=== PATIENT | male | born 1975 | race African-American/Black ===

== ENCOUNTER 2017-04-26 18:22 | Observation (INO) | payer OTHER ==
[~2017-04-26] VITALS: Ht 188 cm; Wt 166.2 kg
[~2017-04-26 18:22] MED LIST: CHOLESTEROL MED PO; LISI-360 PO; METO25 PO
[2017-04-26 18:23] VITALS: BP 220/131; PULSE 69; RESP 14; TEMP 98.3; O2SAT 98
[2017-04-26 20:06] VITALS: BP 189/121; PULSE 74; RESP 20; O2SAT 97
--- NOTE | 2017-04-26 20:17 | PD ---
HPI Chief Complaint: Cardiac Complaint Time Seen by Provider: 20:17 Travel History International Travel<30 days: No Contact w/Intl Traveler<30days: No Traveled to known affect area: No History of Present Illness HPI 41-year-old male with PMH of untreated hypertension presents to the ED for evaluation of headache, dizziness, blurred vision. Onset while the patient was cutting a tree limb. Headache described as bitemporal and over the hall of the head. He endorses accompanying palpitations, nausea and shortness of breath. He went home and laid down but his headache had not resolved so he decided to come to the emergency room. On presentation he complains of 7/10 left-sided chest pain and left head pain. Chest pain described as "a pressure. " He states that he was prescribed lisinopril but he had side effects and stopped taking it "months ago." He endorses a history of headaches and states this is similar to those. PFSH Past Medical History Asthma: Yes Cardiovascular Problems: Yes High Cholesterol: Yes Cerebrovascular Accident: Yes Genitourinary: No Headaches: Yes Hypertension: Yes Musculoskeletal: No Neurologic: Yes Reproductive: No Respiratory: Yes Migraines: Yes Myocardial Infarction: No Sleep Apnea: Yes Past Surgical History Abdominal Surgery: No Cardiac Surgery: No Ear Surgery: No Endocrine Surgery: No Eye Surgery: No Gynecologic Surgery: No Oral Surgery: No Thoracic Surgery: No Social History Alcohol Use: No Tobacco Use: No Substance Use: No Allergies-Medications (Allergen,Severity, Reaction): Coded Allergies: Lisinopril (Verified Allergy, Severe, Swelling, 04/26/17) Reported Meds & Prescriptions Reported Meds & Active Scripts Active No Active Prescriptions or Reported Medications Review of Systems Except as stated in HPI: all other systems reviewed are Neg Physical Exam Narrative GENERAL: Well-nourished, well-developed patient. SKIN: Focused skin assessment warm/dry. HEAD: Normocephalic. EYES: No scleral icterus. No injection or drainage. NECK: Supple, trachea midline. No JVD or lymphadenopathy. CARDIOVASCULAR: Regular rate and rhythm without murmurs, gallops, or rubs. RESPIRATORY: Breath sounds equal bilaterally. No accessory muscle use. GASTROINTESTINAL: Abdomen soft, non-tender, nondistended. MUSCULOSKELETAL: No cyanosis, or edema. NEUROLOGICAL: Awake and alert. Cranial nerves II through XII intact. Motor and sensory grossly within normal limits. Five out of 5 muscle strength in all muscle groups. Normal speech. BACK: Nontender without obvious deformity. No CVA tenderness. Data Data Last Documented VS Vital Signs Date Time Temp Pulse Resp B/P Pulse Ox O2 Delivery O2 Flow Rate FiO2 04/26/17 22:20 64 20 196/114 100 Room Air 04/26/17 18:23 98.3 Orders Electrocardiogram (04/26/17 20:29) Prothrombin Time / Inr (Pt) (04/26/17 20:29) Act Partial Throm Time (Ptt) (04/26/17 20:29) Complete Blood Count With Diff (04/26/17 20:29) Comprehensive Metabolic Panel (04/26/17 20:29) Creatine Kinase (Cpk) (04/26/17 20:29) Troponin I (04/26/17 20:29) Urinalysis - C+S If Indicated (04/26/17 20:29) Chest, Single Ap (04/26/17 20:29) Ecg Monitoring (04/26/17 20:29) Iv Access Insert/Monitor (04/26/17 20:29) Oximetry (04/26/17 20:29) Sodium Chloride 0.9% Flush (Ns Flush) (04/26/17 20:30) Prochlorperazine Inj (Compazine Inj) (04/26/17 20:45) Diphenhydramine Inj (Benadryl Inj) (04/26/17 20:45) Aspirin (Aspirin) (04/26/17 22:00) Nitroglycerin 2% Oint (Nitroglycerin 2% (04/26/17 22:00) Metoprolol Tartrate Inj (Lopressor Inj) (04/26/17 22:00) Clonidine (Catapres) (04/26/17 22:30) Vital Signs (Adult) Q4H (04/26/17:17) Activity Oob With Assistance (04/26/17:17) Automotive Services Manager / Telemetry .CONTINUOUS (04/26/17:17) Diet Heart Healthy (04/27/17 Breakfast) Sodium Chloride 0.9% Flush (Ns Flush) (04/26/17 22:30) Sodium Chloride 0.9% Flush (Ns Flush) (04/27/17 09:00) Basic Metabolic Panel (Bmp) (04/27/17 06:00) Complete Blood Count With Diff (04/27/17 06:00) Case Management Consult (04/26/17 22:17) Naloxone Inj (Narcan Inj) (04/26/17 22:30) Ct Brain W/O Iv Contrast(Rout) (04/26/17 ) Hydralazine Inj (Apresoline Inj) (04/26/17 22:30) Consult Cardiology (04/26/17 ) Admit Order (Ed Use Only) (04/26/17 22:17) Labs Laboratory Tests Test 04/26/17 20:44 White Blood Count 5.3 TH/MM3 Red Blood Count 4.97 MIL/MM3 Hemoglobin 12.5 GM/DL Hematocrit 38.9 % Mean Corpuscular Volume 78.3 FL Mean Corpuscular Hemoglobin 25.1 PG Mean Corpuscular Hemoglobin 32.0 % Concent Red Cell Distribution Width 15.9 % Platelet Count 165 TH/MM3 Mean Platelet Volume 9.7 FL Neutrophils (%) (Auto) 71.7 % Lymphocytes (%) (Auto) 21.9 % Monocytes (%) (Auto) 5.3 % Eosinophils (%) (Auto) 0.9 % Basophils (%) (Auto) 0.2 % Neutrophils # (Auto) 3.8 TH/MM3 Lymphocytes # (Auto) 1.2 TH/MM3 Monocytes # (Auto) 0.3 TH/MM3 Eosinophils # (Auto) 0.0 TH/MM3 Basophils # (Auto) 0.0 TH/MM3 CBC Comment DIFF FINAL Differential Comment Prothrombin Time 10.8 SEC Prothromb Time International 1.0 RATIO Ratio Activated Partial 26.5 SEC Thromboplast Time Sodium Level 139 MEQ/L Potassium Level 3.8 MEQ/L Chloride Level 104 MEQ/L Carbon Dioxide Level 25.5 MEQ/L Anion Gap 10 MEQ/L Blood Urea Nitrogen 9 MG/DL Creatinine 1.03 MG/DL Estimat Glomerular Filtration 96 ML/MIN Rate Random Glucose 96 MG/DL Calcium Level 9.0 MG/DL Total Bilirubin 0.6 MG/DL Aspartate Amino Transf 19 U/L (AST/SGOT) Alanine Aminotransferase 27 U/L (ALT/SGPT) Alkaline Phosphatase 74 U/L Total Creatine Kinase 299 U/L Troponin I 0.16 NG/ML Total Protein 7.3 GM/DL Albumin 3.4 GM/DL MDM Medical Decision Making Medical Screen Exam Complete: Yes Emergency Medical Condition: Yes Differential Diagnosis Hypertensive urgency versus hypertensive emergency versus heat exhaustion versus angina versus ACS versus Narrative Course 41-year-old male with PMH of untreated hypertension presents to the ED for evaluation of , left-sided chest pain, headache, dizziness, blurred vision. Onset while the patient was cutting a tree limb. Chest pain described as "a pressure." Headache described as bitemporal and over the hall of the head. He endorses accompanying palpitations, nausea and shortness of breath. He went home and laid down but his headache had not resolved so he decided to come to the emergency room. On presentation he complains of 7/10 left-sided chest pain and left head pain. He states that he was prescribed lisinopril but he had side effects and stopped taking it "months ago." He endorses a history of headaches and states this is similar to those. Patient was administered Compazine and Benadryl. No concerning abnormalities of the CBC, CMP, coags. Troponin elevated 0.16. Chest x-ray clear per radiology read. EKG rate 67, sinus rhythm with first-degree AV block. HI interval to 18, QRS 100, QTC 427. Flattened T waves. Reviewed by Dr. Pena. EKG similar to previous of 09/22/15. Patient was administered ASA, Metoprolol, nitro paste. Call placed to Dr. Mcallister, cardiology, who recommends admission to the medicine service for further evaluation. I discussed the patient, results, plan with Dr. Pena. I discussed the results the workup with the family who are agreeable to admission. I spoke with Dr. Judge who agrees to accept the patient on medicine service. Please see medicine notes for disposition. Diagnosis Primary Impression: Chest pain Qualified Code: R07.9 - Chest pain, unspecified type Additional Impressions: Elevated troponin Hypertension Qualified Code: I10 - Hypertension, unspecified type Admitting Information Admitting Physician Requests: Admit Scripts No Active Prescriptions or Reported Meds Lauryn Perez Apr 26, 2017 20:17
[2017-04-26] MEDS ORDERED: SODIUM CHLORIDE 0.9% FLUSH 10 ML FLUSH IVF PRN (20:30)
[2017-04-26 20:38] VITALS: O2SAT 98
[2017-04-26] MEDS ORDERED: diphenhydrAMINE HCL 50 MG/ML VIAL IVP ONE (20:45)
[2017-04-26] MEDS ORDERED: PROCHLORPERAZINE INJ 10 MG/2 ML VIAL IVP ONE (20:45)
[2017-04-26 21:12] LABS: AUTOMATED NEUTROPHIL # 3.8 TH/MM3 (1.8-7.7); BASOPHIL % 0.2 % (0.0-2.0); EOSINOPHIL % 0.9 % (0.0-4.0); HEMATOCRIT 38.9 % (39.0-51.0); HEMO FLAGS DIFF FINAL; LYMPH % 21.9 % (9.0-44.0); LYMPHOCYTE # 1.2 TH/MM3 (1.0-4.8); MEAN CELL VOLUME 78.3 FL (80.0-100.0); MEAN CORPUSCULAR HEMOGLOBIN 25.1 PG (27.0-34.0); MONO % 5.3 % (0.0-8.0); NEUT % 71.7 % (16.0-70.0); PLATELET COUNT 165 TH/MM3 (150-450); RED BLOOD COUNT 4.97 MIL/MM3 (4.50-5.90); RED CELL DISTRIBUTION WIDTH 15.9 % (11.6-17.2); WHITE BLOOD COUNT 5.3 TH/MM3 (4.0-11.0)
--- NOTE | 2017-04-26 21:14 | RADRPT ---
EXAM DATE/TIME: 04/26/2017 20:32 [facility] COMPARISON: No previous studies available for comparison. INDICATIONS : Patient has had chest pain since this morning. MEDICAL HISTORY : Hypertension. Cerebrovascular accident. SURGICAL HISTORY : None. ENCOUNTER: Initial ACUITY: 1 day PAIN SCORE: 5/10 LOCATION: Bilateral chest FINDINGS: A single view of the chest demonstrates the lungs to be symmetrically aerated without evidence of mas s, infiltrate or effusion. The cardiomediastinal contours are unremarkable. Osseous structures are intact. CONCLUSION: The lungs are clear. Jaxon Lao MD on April 26, 2017 at 21:12 Board Certified Radiologist. This report was verified electronically.
[2017-04-26 21:19] LABS: APTT (PATIENT) 26.5 SEC (24.3-30.1); PROTHROMBIN TIME - PATIENT 10.8 SEC (9.8-11.6)
[2017-04-26 21:21] LABS: ANION GAP 10 MEQ/L (5-15); AST (GOT) 19 U/L (15-37); BICARBONATE 25.5 MEQ/L (21.0-32.0); BLOOD UREA NITROGEN 9 MG/DL (7-18); CHLORIDE 104 MEQ/L (98-107); GLOMERULAR FILTRATION RATE 96 ML/MIN (>89); POTASSIUM 3.8 MEQ/L (3.5-5.1); SODIUM (NA) 139 MEQ/L (136-145)
[2017-04-26 21:22] LABS: ALT (GPT) 27 U/L (12-78)
[2017-04-26 21:26] LABS: ALKALINE PHOSPHATASE 74 U/L (45-117); CREATINE KINASE 299 U/L (39-308); TOTAL BILIRUBIN ADULT 0.6 MG/DL (0.2-1.0)
[2017-04-26] MEDS ORDERED: ASPIRIN 81 MG CHEW TAB PO ONE (21:45)
[2017-04-26] MEDS ORDERED: ASPIRIN 325 MG TAB PO ONE (22:00)
[2017-04-26] MEDS ORDERED: NITROGLYCERIN 2% OINT 1 GM PACKET TOP ONE (22:00)
[2017-04-26] MEDS: METOPROLOL TARTRATE 5 MG/5 ML VIAL IVS SCH ×3 (22:05→22:12)
[2017-04-26 22:20] VITALS: BP 196/114; PULSE 64; RESP 20; O2SAT 100
[2017-04-26] MEDS ORDERED: hydrALAZINE HCL 20 MG/ML VIAL IV PUSH PRN (22:30)
[2017-04-26] MEDS ORDERED: NALOXONE HCL 0.4 MG/ML AMP IV PRN (22:30)
[2017-04-26] MEDS ORDERED: cloNIDine HCL 0.1 MG TAB PO ONE (22:30)
[2017-04-26] MEDS ORDERED: SODIUM CHLORIDE 0.9% FLUSH 10 ML FLUSH IV FLUSH PRN (22:30)
--- NOTE | 2017-04-26 22:44 | RADRPT ---
EXAM DATE/TIME: 04/26/2017 22:26 [facility] COMPARISON: CT BRAIN W/O CONTRAST, September 22, 2015, 18:41. INDICATIONS : Cephalgia. RADIATION DOSE: 56.35 CTDIvol (mGy) MEDICAL HISTORY : Hypertension. Stroke SURGICAL HISTORY : None. ENCOUNTER: Initial ACUITY: 1 day PAIN SCALE: 3/10 LOCATION: cranial TECHNIQUE: Multiple contiguous axial images were obtained of the head. Using automated exposure control and adj ustment of the mA and/or kV according to patient size, radiation dose was kept as low as reasonably a chievable to obtain optimal diagnostic quality images. DICOM format image data is available electro nically for review and comparison. FINDINGS: CEREBRUM: The ventricles are normal for age. No evidence of midline shift, mass lesion, hemorrhage or acute in farction. No extra-axial fluid collections are seen. POSTERIOR FOSSA: The cerebellum and brainstem are intact. The 4th ventricle is midline. The cerebellopontine angle i s unremarkable. EXTRACRANIAL: The visualized portion of the orbits is intact. SKULL: The calvaria is intact. No evidence of skull fracture. CONCLUSION: Negative noncontrast CT brain. Jaxon Lao MD on April 26, 2017 at 22:42 Board Certified Radiologist. This report was verified electronically.
[2017-04-26 23:02] VITALS: BP 175/88; PULSE 62; RESP 18; O2SAT 94
[2017-04-27] VITALS (8 sets, daily range): BP systolic 120–181; BP diastolic 58–98; PULSE 57–78; RESP 16–20; TEMP 98.4–98.7; O2SAT 95–100
[2017-04-27 01:16] LABS: BLOOD, URINE NEG (NEG); COMMENT (UR) CATH-CULT NOT IND; CULTURE IF INDICATED CATH CULTURE NOT IND; GLUCOSE,URINE NEG (NEG); KETONE, URINE NEG (NEG); MUCUS URINE FEW /lpf (OCC); NITRITE,URINE NEG (NEG); PH, URINE 6.5 (5.0-8.5); SQUAMOUS EPITHELIAL CELL URINE 1 /hpf (0-5); URINE COLOR YELLOW (YELLW/STRAW)
[2017-04-27 07:32] LABS: BASOPHIL % 0.1 % (0.0-2.0); EOSINOPHIL # 0.1 TH/MM3 (0-0.4); EOSINOPHIL % 1.7 % (0.0-4.0); HEMO FLAGS DIFF FINAL; LYMPHOCYTE # 0.9 TH/MM3 (1.0-4.8); MEAN CELL VOLUME 79.3 FL (80.0-100.0); MEAN CORPUSCULAR HEMOGLOBIN 24.5 PG (27.0-34.0); MEAN CORPUSCULAR HGB CONC 30.9 % (32.0-36.0); MONO % 5.6 % (0.0-8.0); NEUT % 70.6 % (16.0-70.0); PLATELET COUNT 142 TH/MM3 (150-450); RED BLOOD COUNT 4.66 MIL/MM3 (4.50-5.90); WHITE BLOOD COUNT 4.3 TH/MM3 (4.0-11.0)
[2017-04-27 08:06] LABS: POTASSIUM 3.6 MEQ/L (3.5-5.1)
[2017-04-27 08:07] LABS: BICARBONATE 26.6 MEQ/L (21.0-32.0)
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
[2017-04-27] MEDS ORDERED: PROMETHAZINE INJ 25 MG/ML VIAL IM ONE (10:15)
[2017-04-27] MEDS: SODIUM CHLORIDE 0.9% FLUSH 10 ML FLUSH IV FLUSH SCH ×2 (10:37→21:52)
[2017-04-27] MEDS ORDERED: REGADENOSON INJ 0.4 MG/5 ML SYR ONE (14:22)
--- NOTE | 2017-04-27 14:59 | EKG ---
Date Performed: 04/26/2017 Time Performed: 20:26:47 PTAGE: 41 years EKG: Sinus rhythm WITH FIRST DEGREE AV BLOCK VOLTAGE CRITERIA FOR LVH NONSPECIFIC T-WAVE ABNORMALITY ABNORMAL ECG PREVIOUS TRACING : 09/22/2015 18.11 Since previous tracing, no significant change noted DOCTOR: Rosa Monge Interpretating Date/Time 04/27/2017 14:59:32
[2017-04-27] MEDS: amLODIPine BESYLATE 5 MG TAB PO SCH (18:18)
[2017-04-27 19:55] LABS: HDL CHOLESTEROL 38.4 MG/DL (40.0-60.0)
[2017-04-28] VITALS: BP 146/88; PULSE 74; RESP 18; TEMP 97.8; O2SAT 97
[2017-04-28 04:00] VITALS: BP 139/90; PULSE 60; RESP 18; TEMP 98.2; O2SAT 96
[2017-04-28 08:00] VITALS: BP 143/96; PULSE 68; RESP 20; TEMP 98.7; O2SAT 96
[2017-04-28 08:05] VITALS: PULSE 61
[2017-04-28] MEDS: amLODIPine BESYLATE 5 MG TAB PO SCH (08:49)
[2017-04-28] MEDS ORDERED: ASPIRIN EC 81 MG TABEC PO SCH (09:00)
[2017-04-28] MEDS ORDERED: HYDROCHLOROTHIAZIDE 25 MG TAB PO SCH (09:00)
[2017-04-28] MEDS: SODIUM CHLORIDE 0.9% FLUSH 10 ML FLUSH IV FLUSH SCH (09:00)
--- NOTE | 2017-04-28 10:08 | RADRPT ---
EXAM DATE/TIME: 04/27/2017 14:28 [place] COMPARISON: No previous studies available for comparison. INDICATIONS : Substernal chest pain. Angina. DOSE: 32.6 mCi Tc99m Myoview at stress. 32.9 mCi Tc99m Myoview at rest. 0.4 mg Lexiscan STRESS SYMPTOMS: Headache and stomach cramps. EJECTION FRACTION: 56% MEDICAL HISTORY : Hypertension. Asthma. Stroke. SURGICAL HISTORY : Orthopedic. ENCOUNTER: Initial ACUITY: 1 day PAIN SCALE: 5/10 LOCATION: Substernal chest TECHNIQUE: The patient underwent pharmacologic stress with infusion of prescribed dose. Continuous ECG tracing was monitored during stress. Gated SPECT imaging was performed after stress and conventional SPECT i maging was performed at rest. The examination was performed on a SPECT/CT scanner, both attenuation and non-corrected datasets were reviewed. FINDINGS: DISTRIBUTION: The maximum perfused segment at stress is in the inferoseptal wall. PERFUSION STUDY: The pattern of perfusion at stress is within normal limits. GATED STUDY: There is intact wall motion and thickening without hypokinetic or dyskinetic segments. CONCLUSION: No reversible defects observed to suggest acute ischemia. RISK CATEGORY: Low Jaxon Guevara Jr., MD on April 28, 2017 at 10:02 Board Certified Radiologist. This report was verified electronically.
[2017-04-28 12:00] VITALS: BP 140/78; PULSE 60; RESP 20; TEMP 98.3; O2SAT 97
--- NOTE | 2017-04-28 13:11 | HHI.DCPOC ---
Discharge Care Plan Diagnosis: (1) Hypertensive emergency without congestive heart failure Your Health Problems Are: Chest Pain Exercise Tolerance Additional Problems High blood pressure Goals to Promote Your Health * To prevent worsening of your condition and complications * To maintain your health at the optimal level He needs to keep her blood pressure control with diet and weight loss along with taking her blood pressure medications Directions to Meet Your Goals Take your medications as prescribed Follow your dietary instruction Follow activity as directed Keep your appointments as scheduled Take your immunizations and boosters as scheduled If your symptoms worsen call your PCP, if no PCP go to Urgent Care Center or Emergency Room Smoking is Dangerous to Your Health. Avoid second hand smoke Call the 24-hour hour crisis hotline for domestic abuse at Mateo Barker MD Apr 28, 2017 13:11
[2017-04-28] MEDS ORDERED: AMLO5 PO (13:14)
[2017-04-28] MEDS ORDERED: HYDR25TA5 PO (13:14)
[2017-04-28 16:00] VITALS: BP 146/84; PULSE 70; RESP 20; TEMP 98.6; O2SAT 97
[2017-04-28] MEDS ORDERED: LOVA10TA PO (17:12)
--- NOTE | 2017-04-28 18:26 | ECHRPT ---
Indication: chest pain CONCLUSIONS The left ventricular systolic function is normal with an estimated ejection fraction in the range of 55-60%. Mild concentric left ventricular hypertrophy. Trace mitral valve regurgitation. There is trace tricuspid valve regurgitation. BP: 120 / 58 HR: 72 Rhythm: MEASUREMENTS (Male / Female) Normal Values Technical Quality:Very technically difficult study 2D ECHO LV Diastolic Diameter PLAX 4.4 cm 4.2 - 5.9 / 3.9 - 5.3 cm LV Systolic Diameter PLAX 2.7 cm IVS Diastolic Thickness 1.6 cm 0.6 - 1.0 / 0.6 - 0.9 cm LVPW Diastolic Thickness 1.3 cm 0.6 - 1.0 / 0.6 - 0.9 cm LV Relative Wall Thickness 0.6 RV Internal Dim ED PLAX 3.4 cm M-MODE Aortic Root Diameter MM 4.2 cm LA Systolic Diameter MM 4.1 cm LA Ao Ratio MM 1.0 AV Cusp Separation MM 2.5 cm DOPPLER Mitral E Point Velocity 65.6 cm/s Mitral A Point Velocity 67.1 cm/s Mitral E to A Ratio 1.0 LV E' Lateral Velocity 8.6 cm/s Mitral E to LV E' Lateral Ratio 7.6 LV E' Septal Velocity 9.6 cm/s Mitral E to LV E' Septal Ratio 6.9 FINDINGS LEFT VENTRICLE Normal left ventricular size. Mild concentric left ventricular hypertrophy. The left ventricular systolic function is normal with an estimated ejection fraction in the range of 55-60%. RIGHT VENTRICLE Normal right ventricular size and systolic function. LEFT ATRIUM The left atrial size is normal. RIGHT ATRIUM The right atrial size is normal. ATRIAL SEPTUM The interatrial septum not well visualized. AORTA The aortic root and proximal ascending aorta are normal in size on limited imaging. MITRAL VALVE Structurally normal mitral valve. Trace mitral valve regurgitation. No mitral valve stenosis. AORTIC VALVE Trileaflet aortic valve. No aortic valve stenosis or regurgitation. TRICUSPID VALVE Structurally normal tricuspid valve. No tricuspid valve stenosis. There is trace tricuspid valve regurgitation. PULMONARY VALVE The pulmonary valve is not well visualized. VESSELS The inferior vena cava is normal in size. PERICARDIUM No pericardial effusion. Jaylan Pena DO (Electronically Signed) Final Date:28 April 2017 18:24
--- NOTE | 2017-04-28 18:38 | HHI.DS ---
Discharge Summary Admission Date Apr 26, 2017 at 22:20 Discharge Date: Apr 28, 2017 Admitting Diagnosis chest pain, elevated troponin, hypertension (1) Chest pain ICD Code: R07.9 (2) Hypertensive emergency without congestive heart failure ICD Code: I16.1 Diagnosis: Principal (3) Hypertension ICD Code: I10 (4) Elevated troponin ICD Code: R74.8 Procedures Lexiscan showing no signs of reversible ischemia Brief History - From Admission 41-year-old black male being admitted for chest pain with severe hypertension. Patient was in his usual state of health until yesterday shortly after eating a hot dog when he began experiencing a frontal headache, dizziness, and blurry vision in both eyes. This was shortly followed by intermittent chest pain ( crampy in nature) that would worsen with exertion, was nonradiating. He did also have some isolated left hand tingling. Patient laid down for a few hours thinking that his symptoms were going to self resolve but due to the persistence he then presented to the emergency room. Patient denies having any focal weakness in any of his 4 limbs, denies any unsteady gait, denies any facial droop or slurred speech. No nausea vomiting or diarrhea. He says that he has a history of migraines and that is frontal headache did not feel like a typical migraine. He took Advil to no avail. Patient says that he had a partially similar presentation a few years ago to a different hospital and area and says he had an echocardiogram done there which he was told looked good by physician. Patient does not have PCP nor any specialists care. CBC/BMP: 04/27/17 0705 04/27/17 0705 Significant Findings Laboratory Tests Test 04/26/17 04/27/17 04/27/17 20:44 00:55 07:05 Hemoglobin 12.5 GM/DL 11.4 GM/DL (13.0-17.0) (13.0-17.0) Hematocrit 38.9 % 37.0 % (39.0-51.0) (39.0-51.0) Mean Corpuscular Volume 78.3 FL 79.3 FL (80.0-100.0) (80.0-100.0) Mean Corpuscular Hemoglobin 25.1 PG 24.5 PG (27.0-34.0) (27.0-34.0) Neutrophils (%) (Auto) 71.7 % 70.6 % (16.0-70.0) (16.0-70.0) Troponin I 0.16 NG/ML 0.06 NG/ML (0.02-0.05) (0.02-0.05) Urine RBC 5 /hpf (0-3) Urine Mucus FEW /lpf (OCC) Mean Corpuscular Hemoglobin 30.9 % Concent (32.0-36.0) Platelet Count 142 TH/MM3 (150-450) Lymphocytes # (Auto) 0.9 TH/MM3 (1.0-4.8) Cholesterol Level 228 MG/DL (120-200) LDL Cholesterol 170 MG/DL (0-99) HDL Cholesterol 38.4 MG/DL (40.0-60.0) Imaging Last Impressions Myocardial Perfusion Scan Nuc Med 04/27/17 0000 Signed Impressions: Service Date/Time: April 14:28 - CONCLUSION: No reversible defects observed to suggest acute ischemia. RISK CATEGORY: Low Jaxon Guevara Jr., MD Chest X-Ray 04/26/172028 Signed Impressions: Service Date/Time: Wednesday, April 26, 2017 20:32 - CONCLUSION: The lungs are clear. Jaxon Lao MD Head CT 04/26/17 0000 Signed Impressions: Service Date/Time: Wednesday, April 26, 2017 22:26 - CONCLUSION: Negative noncontrast CT brain. Jaxon Lao MD PE at Discharge GENERAL: Resting comfortably, no acute distress EYES: No scleral icterus. No injection or drainage. CARDIOVASCULAR: Regular rate and rhythm without murmurs, gallops, or rubs. RESPIRATORY: Breath sounds equal bilaterally. No accessory muscle use. GASTROINTESTINAL: Abdomen soft, non-tender, nondistended. MUSCULOSKELETAL: No cyanosis, or edema. Hospital Course Patient was admitted to the [facility], place on telemetry. His hypertension was stabilized, underwent a Lexiscan which was negative, had an unremarkable echo. Patient's symptoms had resolved in less than 12 hours with controlling of his blood pressure. It was deemed that he had hypertensive emergency. Patient was started on blood pressure medications and stated he needed a follow-up with PCP and cardiology. Patient had met maximum benefit from hospitalization and was quickly stable for discharge. Pt Condition on Discharge: Good Discharge Disposition: Discharge Home Discharge Time: > 30 minutes Discharge Instructions DIET: Follow Instructions for: Heart Healthy Diet Activities you can perform: Regular-No Restrictions Follow up Referrals: Cardiology - 3 Weeks PCP Follow-up - 2 Weeks New Medications: Lovastatin (Lovastatin) 10 Mg Tab 10 MG PO DAILY Cholesterol Management #30 Ref 0 TAB Amlodipine (Norvasc) 5 Mg Tab 5 MG PO DAILY Blood Pressure Management #30 TAB Hydrochlorothiazide (Hydrochlorothiazide) 25 Mg Tab 25 MG PO DAILY Blood Pressure Management #30 TAB Mateo Barker MD Apr 28, 2017 18:38
== END 2017-04-28 18:25 | disposition home or self-care (01) ==
LOC: NEPE 18:22 → NEDA 22:20 → NEDH 04-27 03:00 → N04B 04-27 11:03
PROVIDERS: ADMIT Hospitalist; ATTEND Hospitalist
DX: R07.9 Chest pain, unspecified (principal); I10 Essential (primary) hypertension; R74.8 Abnormal levels of other serum enzymes; R51 Headache; E78.00 Pure hypercholesterolemia, unspecified; G47.30 Sleep apnea, unspecified; I44.0 Atrioventricular block, first degree; Z91.14 Patient's other noncompliance with medication regimen
CPT/HCPCS: 70450; 71010; 78452; 80048; 80053; 80061; 81001; 82550; 84484; 85025; 85610; 85730; 93005; 93017; 93306; 96374; 96375; 99285; A9502; G0378; J0360; J0780; J1200; J2785